=== PATIENT | male | born 1975 | race Caucasian/White ===

== ENCOUNTER 2018-10-15 15:56 | Emergency (ER) | payer OTHER ==
[~2018-10-15] VITALS: Ht 177.8 cm; Wt 102.1 kg
[~2018-10-15 15:56] MED LIST: IBUPROFEN 800800 M1 PO; NOHOMEMEDICATIONS; PERCOCET 5-3251 EACH PO
[2018-10-15] MEDS ORDERED: AMBIEN 5 MG TABL5 M1 (16:07)
[2018-10-15] MEDS ORDERED: AMITRIPTYLINE H50 M2 PO (16:08)
[2018-10-15] MEDS ORDERED: HYDROCHLOROTHIA25 M2 PO (16:08)
[2018-10-15 17:28] LABS: ABSOLUTE BASOPHILS 0.1 thou/uL (0.0-0.2); ABSOLUTE EOSINOPHILS 0.1 thou/uL (0.0-0.7); ABSOLUTE LYMPHOCYTES 2.7 thou/uL (0.8-5.3); ABSOLUTE MONOCYTES 0.7 thou/uL (0.0-1.2); BASOPHILS 0.7 %; EOSINOPHILS 1.3 %; HEMATOCRIT 43.4 % (42.0-52.0); HEMOGLOBIN 14.4 gm/dL (14.0-18.0); LYMPHOCYTES 31.7 %; MCH 30.4 pg (26.0-34.0); MCHC 33.2 g/dL (28.0-37.0); MCV 91.4 fL (80.0-100.0); MONOCYTES 7.8 %; MPV 7.9 fl. (7.2-11.1); NUCLEATED RBCS 0 /100WBC; PLATELET COUNT* 158 thou/uL (150-400); POLYS 58.5 %; RBC 4.75 mil/uL (4.50-6.00); RDW-CV 13.9 % (10.5-14.5); WBC 8.6 thou/uL (4.0-11.0)
[2018-10-15 17:39] LABS: CALCIUM 8.7 mg/dL (8.5-10.1); POTASSIUM 3.8 mmol/L (3.5-5.1)
[2018-10-15 17:44] LABS: ALBUMIN 3.5 g/dL (3.4-5.0); TOTAL BILIRUBIN 0.4 mg/dL (<0.1-1.0); TOTAL PROTEIN 6.2 g/dL (6.4-8.2)
[2018-10-15 18:46] LABS: ESR (SEDRATE) 0 mm/hr (0-15)
[2018-10-15] MEDS ORDERED: HYDROCODONE-AP1 EAC6 PO (20:22)
[2018-10-15 20:34] VITALS: BP 147/78
--- NOTE | 2018-10-16 17:45 | EKG ---
[place] [address] ELECTROCARDIOGRAM REPORT Name: HALLEY AVINA Room: [facility]#: [id number] Admission: 10/15/18 Attend Phys: Discharge: 10/15/18 Date of : 79 Report #: [id number] THIS REPORT FOR: //name// [facility] ED Test Date: 2018-10-15 Test Time: 16:04:00 Pat Name: HALLEY AVINA Department: Room: Gender: M [employer] Packing Examiner: GOGO : 1975 Requested By: Keely Flowers Order Number: [id number] Dianne MD: Colt Acosta Measurements Intervals [place] Rate: 75 P: 28 TX: 185 QRS: 70 QRSD: 91 T: 39 QT: 397 QTc: 444 Interpretive Statements Sinus rhythm No previous ECG available for comparison Electronically Signed On 10-16-2018 17:44:48 APPLICATION SUPPORT ANALYST by Colt Acosta [email or web address] <ELECTRONICALLY SIGNED> By: Colt Acosta MD, [facility] 10/16/18 1744 1604 1604 Colt Acosta MD, FACC /EPI
== END 2018-10-15 20:34 | disposition home or self-care (01) ==
LOC: M.ERS 15:56
PROVIDERS: Personal Emergency Response Attendant
DX: M54.2 Cervicalgia (principal); R42 Dizziness and giddiness; R20.0 Anesthesia of skin; R51 Headache; Z91.040 Latex allergy status

== ENCOUNTER 2020-10-21 07:02 | Emergency (ER) | payer BC ==
[~2020-10-21] VITALS: Ht 177.8 cm; Wt 102.1 kg
[~2020-10-21 07:02] MED LIST changes: +AMBIEN 5 MG TABL5 M1; +AMITRIPTYLINE H50 M2 PO; +HYDROCHLOROTHIA25 M2 PO; +HYDROCODONE-AP1 EAC6 PO
[2020-10-21] MEDS ORDERED: LYRICA 75 MG CA75 MG PO (07:14)
[2020-10-21] MEDS ORDERED: TOPAMAX 100 MG100 MG PO (07:23)
[2020-10-21 07:39] LABS: ABSOLUTE BASOPHILS 0.1 thou/uL (0.0-0.2); ABSOLUTE LYMPHOCYTES 1.8 thou/uL (0.8-5.3); ABSOLUTE MONOCYTES 0.5 thou/uL (0.0-1.2); ABSOLUTE NEUTROPHILS 4.5 thou/uL (1.6-8.1); EOSINOPHILS 0.3 %; HEMATOCRIT 44.4 % (42.0-52.0); HEMOGLOBIN 14.9 gm/dL (14.0-18.0); LYMPHOCYTES 25.5 %; MCH 30.1 pg (26.0-34.0); MCHC 33.6 g/dL (28.0-37.0); MCV 89.7 fL (80.0-100.0); MONOCYTES 7.6 %; MPV 8.1 fl. (7.2-11.1); NUCLEATED RBCS 0 /100WBC; PLATELET COUNT* 186 thou/uL (150-400); POLYS 65.6 %; RBC 4.95 mil/uL (4.50-6.00); RDW-CV 13.3 % (10.5-14.5); WBC 6.9 thou/uL (4.0-11.0)
[2020-10-21 07:48] LABS: CALCIUM 9.3 mg/dL (8.5-10.1); CREATININE 1.1 mg/dL (0.6-1.3); POTASSIUM 3.3 mmol/L (3.5-5.1)
[2020-10-21 07:51] LABS: PROTIME 10.6 Seconds (9.20-11.50)
[2020-10-21 07:56] LABS: ALBUMIN 3.7 g/dL (3.4-5.0); TOTAL BILIRUBIN 0.5 mg/dL (<0.1-1.0); TOTAL PROTEIN 6.8 g/dL (6.4-8.2)
[2020-10-21] MEDS ORDERED: NORCO 5-325 TA1 EAC2 PO (13:24)
[2020-10-21 13:34] VITALS: BP 134/79
== END 2020-10-21 13:35 | disposition home or self-care (01) ==
LOC: M.ERS 07:02
PROVIDERS: Emergency Medicine Emergency Medical Services
DX: M54.2 Cervicalgia (principal); Z91.040 Latex allergy status